=== PATIENT | male | born 1970 | race Caucasian/White ===

== ENCOUNTER → 2018-03-24 15:00 | Outpatient (CLI) | payer BC, SELFPAY ==
--- NOTE | 2018-03-24 15:04 | DI.RAD.S_ITS ---
PROCEDURE: XR KNEE RT 3V INDICATIONS: RIGHT KNEE PAIN TECHNIQUE: 3 views of the knee were acquired. COMPARISON: None. FINDINGS: Bones: No fractures or dislocations. No suspicious bony lesions. Minimal bone spurs over the posterior patella. Mild narrowing of the medial joint compartment. Soft tissues: Trace joint effusion. No suspicious soft tissue calcifications. IMPRESSION: 1. No acute bony abnormality. 2. 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 3. Trace joint effusion. Dictated by: Yonny Swain M.D. on 03/24/2018 at 15:37 Approved by: Yonny Swain M.D. on 03/24/2018 at 15:38
== END ==
PROVIDERS: PCP Family Medicine; Visit Provider Family Medicine
DX: M17.11 Unilateral primary osteoarthritis, right knee (principal); M25.561 Pain in right knee
CPT/HCPCS: 73562

== ENCOUNTER → 2019-07-19 10:28 | Outpatient (CLI) | payer BC, SELFPAY | PROVIDERS: PCP Family Medicine; Visit Provider Physician Assistant | DX: J02.9 Acute pharyngitis, unspecified (principal) | CPT/HCPCS: 87070 ==

== ENCOUNTER → 2019-07-19 10:38 | Outpatient (CLI) | payer BC, SELFPAY ==
--- NOTE | 2019-07-19 10:39 | DI.RAD.S_ITS ---
PROCEDURE: XR CHEST 2V INDICATIONS: cough, fever, R-sided wheeze - please R/O PNA TECHNIQUE: 2 views of the chest were acquired. COMPARISON: None. FINDINGS: Surgical changes and devices: None. Lungs and pleura: Lungs are clear. No pleural effusions or pneumothorax. Mediastinum: Mediastinal contours are normal. Heart size is normal. Bones and chest wall: No suspicious bony abnormalities. Soft tissues appear unremarkable. IMPRESSION: 1. No evidence of pneumonia. Dictated by: Raul Rivera M.D. on 07/19/2019 at 10:06 Approved by: Raul Rivera M.D. on 07/19/2019 at 10:08
== END ==
PROVIDERS: PCP Family Medicine; Visit Provider Physician Assistant
DX: R05 Cough (principal); R50.9 Fever, unspecified; R06.2 Wheezing; J02.9 Acute pharyngitis, unspecified
CPT/HCPCS: 71046; 87070

== ENCOUNTER 2019-10-24 17:30 | Emergency (ER) | payer BC, SELFPAY ==
[2019-10-24 17:35] VITALS: BP 164/105; PULSE 78; RESP 17; TEMP 36.9; O2SAT 99
--- NOTE | 2019-10-24 17:40 | DI.RAD.S_ITS ---
PROCEDURE: XR HIP W PEL IF DONE LT 2V INDICATIONS: fall TECHNIQUE: AP pelvis with lateral view(s) of the left hip(s). COMPARISON: None. FINDINGS: Bones: No fractures or dislocations. Pelvic ring appears intact. No suspicious bony lesions. Soft tissues: The visualized bowel gas pattern is normal. No suspicious soft tissue calcifications. IMPRESSION: Intact pelvis and left hip joint Dictated by: Carley Pineda M.D. on 10/24/2019 at 18:05 Approved by: Carley Pineda M.D. on 10/24/2019 at 18:07
--- NOTE | 2019-10-24 17:42 | DI.RAD.S_ITS ---
PROCEDURE: XR LUMBAR SPINE 2-3V INDICATIONS: fall TECHNIQUE: 2 views of the lumbar spine were acquired. COMPARISON: None. FINDINGS: Bones: 5 [id number] vertebrae are present. Mild levoconvex scoliotic curvature is noted. No vertebral body compression fractures. No suspicious bony lesions. Soft tissues: Overlying bowel gas pattern is normal. No suspicious soft tissue calcifications. IMPRESSION: No displaced fractures are seen on these plain films. If there is focal tenderness, or other clinical concern for a fracture not seen on these images in this patient with a given history of trauma, please consider a dedicated CT or a short-term followup plain film series (in 1-2 weeks) for further evaluation. Dictated by: Randy Orantes M.D. on 10/24/2019 at 17:23 Approved by: Randy Orantes M.D. on 10/24/2019 at 17:24
--- NOTE | 2019-10-24 17:50 | DI.RAD.S_ITS ---
PROCEDURE: XR FEMUR LT MIN 2V INDICATIONS: fall TECHNIQUE: 2 views of the femur were acquired. COMPARISON: [facility], CR, XR TIBIA FIBULA RT 2V, 10/24/2019, 18:00. [facility], CR, XR LUMBAR SPINE 2-3V, 10/24/2019, 17:56. [facility], CR, XR HIP W PEL IF DONE LT 2V, 10/24/2019, 17:44. FINDINGS: Bones: No fractures or dislocations. No suspicious bony lesions. Soft tissues: No suspicious soft tissue calcifications or masses. IMPRESSION: No definite, displaced fractures are seen by plain film. Dictated by: Randy Orantes M.D. on 10/24/2019 at 17:26 Approved by: Randy Orantes M.D. on 10/24/2019 at 17:27
--- NOTE | 2019-10-24 17:50 | DI.RAD.S_ITS ---
PROCEDURE: XR TIBIA FUBULA RT 2V INDICATIONS: fall TECHNIQUE: 2 views of the tibia and fibula were acquired. COMPARISON: [facility], CR, XR LUMBAR SPINE 2-3V, 10/24/2019, 17:56. [facility], CR, XR FEMUR LT MIN 2V, 10/24/2019, 17:51. [facility], CR, XR HIP W PEL IF DONE LT 2V, 10/24/2019, 17:44. FINDINGS: Bones: No fractures or dislocations. No suspicious bony lesions. Soft tissues: No suspicious soft tissue calcifications or masses. IMPRESSION: No acute bony injury is seen. Dictated by: Randy Orantes M.D. on 10/24/2019 at 17:27 Approved by: Randy Orantes M.D. on 10/24/2019 at 17:27
[2019-10-24] MEDS: MORPHINE 4 MG/ML INJ IV ×2 (17:51→19:40)
[2019-10-24 18:30] VITALS: BP 163/98
--- NOTE | 2019-10-24 18:55 | ED.LOWEXIN ---
HPI - Extremity Injury (Lower) <IVY Humphreys - Last Filed: 10/24/19 23:20> General Chief Complaint: Extremity Injury, Lower Stated Complaint: Back pain Time Seen by Provider: 10/24/19 17:56 Source: patient and EMS Mode of arrival: EMS Limitations: no limitations History of Present Illness HPI Narrative: This is a 49-year-old male, nonsmoker, who presents to ED with EMS with chief complain of severe low back pain radiating down to his buttock and inner groin region. Patient reports he was barbecuing outside and when he attempted to step over the puppy and landed his foot on a mat which is slipped away from his body and landed on his left low back/hip. He states his had two legs were splited into two opposite ways and he was unable to ambulate after the fall and waited for medics to arrive. Patient denies previous back injury or surgeries. Is not currently taking anticoagulant/antiplatelets. Patient denies incontinence for bladder or stool after the injury. Patient denies hitting his head when he had fell. Patient denies tingling, numbness, weakness to upper extremities or mid cervical tenderness. Patient reports slightly decreased sensation on his left lateral thigh. Received patient on a inflatable backboard from EMS. Related Data Home Medications Medication Instructions Recorded Confirmed metformin 500 mg tablet 500 mg PO DAILY 07/19/19 10/24/19 Previous Rx's Medication Instructions Recorded codeine 10 mg-guaifenesin 100 mg/5 10 ml PO .qhs PRN #120 ml 07/19/19 mL oral liquid cyclobenzaprine 10 mg PO TID PRN #14 tab 10/24/19 lidocaine 1 patch TOP DAILY #30 each 10/24/19 tramadol 50 mg PO TID-QID PRN #14 tab 10/24/19 Allergies Allergy/AdvReac Type Severity Reaction Status Date / Time Penicillins Allergy Unknown Verified 10/24/19 18:01 Review of Systems <IVY Humphreys - Last Filed: 10/24/19 23:20> Review of Systems Narrative: General: Denies fever, chills, fatigue, malaise, sweats. HEENT: Denies sinus pain, ear pain, sore throat, difficulty swallowing, dizziness. Respiratory: Denies dyspnea, cough, wheezing, hemoptysis, sputum. Cardiovascular: Denies chest pain, palpitations, orthopnea, edema. Gastrointestinal: Denies nausea, vomiting, abdominal pain, diarrhea, constipation, melena. : Denies dysuria, frequency, incontinence, hematuria, urinary retention. Musculoskeletal: See HPI Skin: Denies rash, skin lesions, or other. Neurologic: Denies weakness, headache, numbness, change in speech, confusion, seizures, incoordination. Psychiatric: No concerning psychosocial issues. 12-point review of systems is negative except for those stated above. Patient History <IVY Humphreys - Last Filed: 10/24/19 23:20> Social History Smoking Status: Never smoker Smoking Status: Never smoker alcohol intake frequency: a few times a week Substance Use Type: does not use Exam <IVY Humphreys - Last Filed: 10/24/19 23:20> Narrative Exam Narrative: General appearance: well developed, well nourished obese male in moderate distress from discomfort. Head: normocephalic, atraumatic, no scalp lesions, non-tender. ENT: Bilateral auditory canals and tympanic membranes clear. Hearing grossly intact. Nose without bleeding, purulent discharge, septal hematoma or deviation. Turbinate without erythema or swelling. Facial sinuses nontender to palpate. Mucous membrane moist, no mucosal lesion. Throat without erythema, tonsillar hypertrophy or exudate. Uvula in midline, airway patent. Neck/Thyroid: neck supple, full range of motion, no visible masses or meningeal signs. No JVD, non-tender without lymphadenopathy. Skin: no suspicious rashes, lesions over visible areas. Warm and dry and appropriate color for ethnicity. Heart: no clubbing, no cyanosis, no edema. S1 and S2 normal. RRR w/o murmurs, clicks, or bruits. Lungs: Breathing even and unlabored. No stridor. No accessory muscles used. Able to speak in full sentences. Chest: normal shape and expansion. Abdomen: non-obese, non-distended. Neurologic: alert and oriented. Cognitive exam, [employer] and PNS grossly intact on informal exam. Psych: good eye contact, normal affect. Initial Vital Signs Initial Vital Signs: Vital Signs Temperature 98.4 F 10/24/19 17:35 Pulse Rate 78 10/24/19 17:35 Respiratory Rate 17 10/24/19 17:35 Blood Pressure 164/105 H 10/24/19 17:35 Pulse Oximetry 99 10/24/19 17:35 Back/Spine/Pelvis Back: normal to inspection Thoracic/Lumbar Spine: thoracic and lumbar spine normal to inspection, No surgical scar(s) present, paraspinal tenderness (Radiating to left buttock and inner thigh), thoraco-lumbar ROM limited, thoraco-lumbar spasm (Right lower lumbar), No thoracic spinal tenderness, No lumbar spinal tenderness and straight leg raise positive (Left leg) Extrem Right lower extremity: full ROM, normal capillary refill, edema (Anterior mid leg), knee Details: normal to inspection; no tenderness and no swelling, lower leg (Anterior mid lower leg tender to palpate), ankle Details: normal to inspection; no tenderness and no swelling and foot Details: normal to inspection, toes with normal ROM, abrasion (anterior elizabeth), ecchymosis (Anterior chin), vascular exam Details: dorsalis pedis pulse present and motor-sensory exam Details: light-touch normal; no crepitus Left lower extremity: knee Details: normal to inspection; no tenderness, lower leg Details: normal to inspection; no tenderness, ankle Details: normal to inspection; no tenderness and no swelling and foot Details: normal capillary refill and normal to inspection; no tenderness <Antonio Murcia DO - Last Filed: 10/24/19 23:28> Initial Vital Signs Initial Vital Signs: Vital Signs Temperature 98.4 F 10/24/19 17:35 Pulse Rate 78 10/24/19 17:35 Respiratory Rate 17 10/24/19 17:35 Blood Pressure 164/105 H 10/24/19 17:35 Pulse Oximetry 99 10/24/19 17:35 Scores <IVY Humphreys - Last Filed: 10/24/19 23:20> GCS [place] coma scale eye opening: Spontaneous [place] coma scale verbal response: Orientated Yeni coma scale motor response: Obey commands Yeni coma scale total score: 15 Course <IVY Humphreys - Last Filed: 10/24/19 23:20> Orders Ordered: ED Orders 10/24/19 17:40 XR hip w pel if done LT 2V Stat 10/24/19 17:42 XR lumbar spine 2-3V Stat 10/24/19 17:50 XR femur LT min 2V Stat XR tibia fibula RT 2V Stat Discontinued Medications Acetaminophen (Tylenol) 975 mg PO NOW ONE Stop: 10/24/19 20:42 Last Admin: 10/24/19 20:50 Dose: 975 mg Documented by: CHARISMA Cyclobenzaprine HCl (Flexeril 10 Mg Prepack) 1 bottle MISC SEEINSTR ONE Stop: 10/24/19 20:42 Last Admin: 10/24/19 20:50 Dose: 1 bottle Documented by: CHARISMA Diazepam (Valium) 5 mg IV NOW ONE Stop: 10/24/19 18:54 Last Admin: 10/24/19 19:41 Dose: 5 mg Documented by: MICHAEL Ibuprofen (Advil) 400 mg PO NOW ONE Stop: 10/24/19 20:42 Last Admin: 10/24/19 20:50 Dose: 400 mg Documented by: CHARISMA Lidocaine (Lidoderm) 1 each TOP NOW ONE Stop: 10/24/19 20:42 Morphine Sulfate (Morphine) 4 mg IV NOW ONE Stop: 10/24/19 17:43 Last Admin: 10/24/19 17:51 Dose: 4 mg Documented by: LATRICIA Morphine Sulfate (Morphine) 4 mg IV NOW ONE Stop: 10/24/19 18:54 Last Admin: 10/24/19 19:40 Dose: 4 mg Documented by: MICHAEL Tramadol HCl (Ultram 50mg Prepack) 1 bottle MISC SEEINSTR ONE Stop: 10/24/19 20:42 Last Admin: 10/24/19 20:50 Dose: 1 bottle Documented by: CHARISMA Vital Signs Vital signs: Vital Signs - 8 hr 10/24/19 17:35 10/24/19 18:30 10/24/19 20:57 Temperature 98.4 F Pulse Rate 78 80 Pulse Rate [Bilateral Dorsalis Pedis] Respiratory Rate 17 19 Blood Pressure 164/105 H Blood Pressure [Right Arm] 163/98 H 152/78 H Pulse Oximetry 99 99 10/24/19 20:58 Temperature Pulse Rate Pulse Rate [Bilateral Dorsalis Pedis] 80 Respiratory Rate Blood Pressure Blood Pressure [Right Arm] Pulse Oximetry <Antonio Murcia DO - Last Filed: 10/24/19 23:28> Orders Ordered: ED Orders 03/14/20 17:40 XR hip w pel if done LT 2V Stat 10/24/19 17:42 XR lumbar spine 2-3V Stat 10/24/19 17:50 XR femur LT min 2V Stat XR tibia fibula RT 2V Stat Discontinued Medications Acetaminophen (Tylenol) 975 mg PO NOW ONE Stop: 10/24/19 20:42 Last Admin: 10/24/19 20:50 Dose: 975 mg Documented by: CHARISMA Cyclobenzaprine HCl (Flexeril 10 Mg Prepack) 1 bottle MISC SEEINSTR ONE Stop: 10/24/19 20:42 Last Admin: 10/24/19 20:50 Dose: 1 bottle Documented by: CHARISMA Diazepam (Valium) 5 mg IV NOW ONE Stop: 10/24/19 18:54 Last Admin: 10/24/19 19:41 Dose: 5 mg Documented by: MICHAEL Ibuprofen (Advil) 400 mg PO NOW ONE Stop: 10/24/19 20:42 Last Admin: 10/24/19 20:50 Dose: 400 mg Documented by: CHARISMA Lidocaine (Lidoderm) 1 each TOP NOW ONE Stop: 10/24/19 20:42 Morphine Sulfate (Morphine) 4 mg IV NOW ONE Stop: 10/24/19 17:43 Last Admin: 10/24/19 17:51 Dose: 4 mg Documented by: LATRICIA Morphine Sulfate (Morphine) 4 mg IV NOW ONE Stop: 10/24/19 18:54 Last Admin: 10/24/19 19:40 Dose: 4 mg Documented by: MICHAEL Tramadol HCl (Ultram 50mg Prepack) 1 bottle MISC SEEINSTR ONE Stop: 10/24/19 20:42 Last Admin: 10/24/19 20:50 Dose: 1 bottle Documented by: CHARISMA Vital Signs Vital signs: Vital Signs - 8 hr 10/24/19 17:35 10/24/19 18:30 10/24/19 20:57 Temperature 98.4 F Pulse Rate 78 80 Pulse Rate [Bilateral Dorsalis Pedis] Respiratory Rate 17 19 Blood Pressure 164/105 H Blood Pressure [Right Arm] 163/98 H 152/78 H Pulse Oximetry 99 99 10/24/19 20:58 Temperature Pulse Rate Pulse Rate [Bilateral Dorsalis Pedis] 80 Respiratory Rate Blood Pressure Blood Pressure [Right Arm] Pulse Oximetry MDM - Extremity Injury (Lower) <IVY Humphreys - Last Filed: 10/24/19 23:20> Differential Diagnosis Differential diagnosis: Likely other (Low back pain and spasm, sciatica, fractured spine) Medical Records Attestation: I reviewed the patient's medical records. Imaging Data XR-Hip LT: Radiologist's Impression: [address] [address] XRay Report Signed Patient: Dontrell Saldana GMR#: [id number] : 1970Acct:[id number] Age/Sex: 49 / MDate of Service: 10/24/19 Loc: ED Accession Number: [id number] Procedure: XR hip w pel if done LT 2V Ordering Provider: Lee Ellison MD PROCEDURE: XR HIP W PEL IF DONE LT 2V INDICATIONS: fall TECHNIQUE: AP pelvis with lateral view(s) of the left hip(s). COMPARISON: None. FINDINGS: Bones: No fractures or dislocations. Pelvic ring appears intact. No suspicious bony lesions. Soft tissues: The visualized bowel gas pattern is normal. No suspicious soft tissue calcifications. IMPRESSION: Intact pelvis and left hip joint Dictated by: Carley Pineda M.D. on 10/24/2019 at 18:05 Approved by: Carley Pineda M.D. on 10/24/2019 at 18:07 XR Lumbar: Radiologist's Impression: [address] [address] XRay Report Signed Patient: Dontrell Saldana GMR#: [id number] : 1970Acct:[id number] Age/Sex: 49 / MDate of Service: 10/24/19 Loc: ED Accession Number: [id number] Procedure: XR lumbar spine 2-3V Ordering Provider: Lee Ellison MD PROCEDURE: XR LUMBAR SPINE 2-3V INDICATIONS: fall TECHNIQUE: 2 views of the lumbar spine were acquired. COMPARISON: None. FINDINGS: Bones: 5 [id number] vertebrae are present. Mild levoconvex scoliotic curvature is noted. No vertebral body compression fractures. No suspicious bony lesions. Soft tissues: Overlying bowel gas pattern is normal. No suspicious soft tissue calcifications. IMPRESSION: No displaced fractures are seen on these plain films. If there is focal tenderness, or other clinical concern for a fracture not seen on these images in this patient with a given history of trauma, please consider a dedicated CT or a short-term followup plain film series (in 1-2 weeks) for further evaluation. Dictated by: Randy Orantes M.D. on 10/24/2019 at 17:23 Approved by: Randy Orantes M.D. on 10/24/2019 at 17:24 XR-Femur LT: Radiologist's Impression: [address] [address] XRay Report Signed Patient: Dontrell Saldana GMR#: [id number] : 1970Acct:[id number] Age/Sex: 49 / MDate of Service: 10/24/19 Loc: ED Accession Number: [id number] Procedure: XR femur LT min 2V Ordering Provider: Lee Ellison MD PROCEDURE: XR FEMUR LT MIN 2V INDICATIONS: fall TECHNIQUE: 2 views of the femur were acquired. COMPARISON: [facility], CR, XR TIBIA FIBULA RT 2V, 10/24/2019, 18:00. [facility], CR, XR LUMBAR SPINE 2-3V, 10/24/2019, 17:56. [facility], CR, XR HIP W PEL IF DONE LT 2V, 10/24/2019, 17:44. FINDINGS: Bones: No fractures or dislocations. No suspicious bony lesions. Soft tissues: No suspicious soft tissue calcifications or masses. IMPRESSION: No definite, displaced fractures are seen by plain film. Dictated by: Randy Orantes M.D. on 10/24/2019 at 17:26 Approved by: Randy Orantes M.D. on 10/24/2019 at 17:27 XR-Tib/Fib RT: Radiologist's Impression: [address] [address] XRay Report Signed Patient: Dontrell Saldana GMR#: [id number] : 1970Acct:[id number] Age/Sex: 49 / MDate of Service: 10/24/19 Loc: ED Accession Number: [id number] Procedure: XR tibia fibula RT 2V Ordering Provider: Lee Ellison MD PROCEDURE: XR TIBIA FUBULA RT 2V INDICATIONS: fall TECHNIQUE: 2 views of the tibia and fibula were acquired. COMPARISON: [facility], CR, XR LUMBAR SPINE 2-3V, 10/24/2019, 17:56. [facility], CR, XR FEMUR LT MIN 2V, 10/24/2019, 17:51. [facility], CR, XR HIP W PEL IF DONE LT 2V, 10/24/2019, 17:44. FINDINGS: Bones: No fractures or dislocations. No suspicious bony lesions. Soft tissues: No suspicious soft tissue calcifications or masses. IMPRESSION: No acute bony injury is seen. Dictated by: Randy Orantes M.D. on 10/24/2019 at 17:27 Approved by: Randy Orantes M.D. on 10/24/2019 at 17:27 MDM Narrative Medical decision making narrative: This is a 49-year-old male who presents to ED with low back pain and spasm which radiates to left groin and right lower leg with abrasion after he landed on left back and hip from falling when a mat slipped after he stepped over a puppy. When he was falling his legs did a split like a scissor. He was not able to bear weight or walk after the fall and had to be moved by EMS on a inflatable board to ED. During initial assessment, patient reports mildly decreased sensation in left lateral thigh. Patient was able to move bilateral toes, intact dorsal extension and plantar flexion, able flex and extend the bilateral knees. Patient had increasing spasming discomfort movement of left lower extremity. There was no saddle anesthesia or head incontinence episode. X-ray tests on left hip and femur, right tib/fib and lumbar did not appreciate acute fractures or dislocations. Patient received fentanyl prior arriving to ED by medics, patient received morphine upon arrival before x-ray test. Due to patient's increasing pain and spasming when backboard was removed and again during exam, patient received additional dose of morphine and Valium and felt improved on his discomfort. Patient was able to ambulate with a walker to the bathroom and back to bed in stable gait. Patient was medicated with Tylenol and Motrin with lidocaine patch before leaving ED and discharged to home with pre packs of tramadol and Flexeril. It is likely patient had strained lumbar and groin muscle. Patient discharged to home with additional dose of lidocaine patch, tramadol and Flexeril and advised to use Tylenol and Motrin as first-line treatment. Narcotic and muscle relaxant medication precautions were discussed with patient and return precautions were discussed. Patient advised to follow-up with his PCP and further imaging tests will warrant if pain persists and possible a referral to physical therapist/orthopedics and verbalized understanding and in agreement the treatment plan. Discharge Plan Departure Patient Disposition: Home Clinical Impression: Spasm of muscle of lower back Left lumbar pain Qualifiers: Chronicity: acute Sciatica presence: with sciatica Sciatica laterality: sciatica of left side Qualified Code(s): M54.42 - Lumbago with sciatica, left side Fall as cause of accidental injury at home as place of occurrence Qualifiers: Encounter type: initial encounter Qualified Code(s): W19.XXXA - Unspecified fall, initial encounter Abrasion of anterior lower leg Qualifiers: Encounter type: initial encounter Laterality: right Qualified Code(s): S80.811A - Abrasion, right lower leg, initial encounter Discharge Date/Time: 10/24/19 21:07 Instructions: DI for Low Back Pain, DI for Abrasion, DI for Back Spasm Activity Restrictions/Additional Instructions: You have been diagnosed with [low back pain radiating to left buttock and groin after slipped and fall. X-ray tests on hip, lumbar spine, left femur, right lower leg were all negative for fracture or dislocation. You were medicated with narcotic pain medication and Valium while in ED. you are able to take steps with a walker.]. What to do: *Take your medications as directed. Please take precautions since cyclobenzaprine and tramadol both can cause drowsiness. Please do not drive, drink alcohol or operate heavy equipments. Narcotic medication can cause constipation so please take precautions. You can take Tylenol 650-1000 mg up to 4 times a day as needed for pain. Ibuprofen 400-600 mg up to 3 times a day with food for pain. If pain persists after this medication then you can take tramadol. Take cyclobenzaprine for muscle relaxant. Lidocaine patch on low back for pain. This stays on 12 hours and off for 12 hours. *Follow up with your primary care provider in 2-3 days, call for an appointment. Let them know you were seen in the ED and that we asked you to be seen in follow up. If pain persists you may need further imaging tests. *Return to ED if you have any new, worsening, or concerning symptoms, such as [chest pain, breathing difficulty, unable to tolerate fluids, weakness/tingling/numbness to lower extremities, numbness to her groin, incontinence or any acute concerns]. Prescriptions: New cyclobenzaprine 10 mg tablet 10 mg PO TID PRN (Reason: muscle spasm) Qty: 14 RF: 0 tramadol 50 mg tablet 50 mg PO TID-QID PRN (Reason: pain) Qty: 14 RF: 0 lidocaine 5 % adhesive patch,medicated 1 patch TOP DAILY Qty: 30 RF: 0 No Action metformin 500 mg tablet 500 mg PO DAILY RF: 0 codeine-guaifenesin 10-100 mg/5 mL liquid 10 ml PO .qhs PRN (Reason: cough) Qty: 120 RF: 0 Referrals: Antonio Lynn MD [Primary Care Provider] - <Antonio Murcia DO - Last Filed: 10/24/19 23:28> Sign Out Provider Sign Out Attestation: Dr Murcia Co-Sign Statement: I was available for consultation during this patient's emergency department visit. This chart is signed by myself for administrative purposes only. I did not have direct contact with this patient during this visit. They were seen independently by the APC.
[2019-10-24] MEDS: diazePAM 10 MG/2 ML SYRINGE 5 MG IV (19:41)
[2019-10-24] MEDS: TRAMADOL 50 MG PREPACK 1 BOTTLE MISC (20:50)
[2019-10-24] MEDS: IBUPROFEN 400 MG TABLET PO (20:50)
[2019-10-24] MEDS: CYCLOBENZAPRINE 10 MG PREPACK 1 BOTTLE MISC (20:50)
[2019-10-24] MEDS: ACETAMINOPHEN 325 MG TABLET 975 MG PO (20:50)
[2019-10-24 20:57] VITALS: BP 152/78; PULSE 80; RESP 19; O2SAT 99
[2019-10-24 20:58] VITALS: PULSE 80
== END 2019-10-24 21:07 | disposition home or self-care (01) ==
PROVIDERS: Emergency Provider Nurse Practitioner Family; PCP Family Medicine
DX: S33.5XXA Sprain of ligaments of lumbar spine, initial encounter (principal); M54.42 Lumbago with sciatica, left side; S80.811A Abrasion, right lower leg, initial encounter; W19.XXXA Unspecified fall, initial encounter
CPT/HCPCS: 72100; 73502; 73552; 73590; 96374; 96375; 96376; 99284; J2270; J3360

== ENCOUNTER → 2020-09-09 10:20 | Outpatient (CLI) | payer BC, SELFPAY ==
--- NOTE | 2020-09-09 | DI.RAD.S_ITS ---
PROCEDURE: XR FOOT LT MIN 3V INDICATIONS: Pain in left foot TECHNIQUE: 3 views of the foot were acquired. COMPARISON: [facility], , FOOT 3V LEFT, 01/09/2015, 7:20. FINDINGS: Bones: No fractures or dislocations. No suspicious bony lesions. Soft tissues: No tibiotalar joint effusion. Achilles tendon appears normal. Soft tissue swelling in the lateral aspect of the left foot. IMPRESSION: No fractures. Soft tissue swelling in the lateral aspect of the left foot. If clinical symptoms persist or clinical suspicion for pathology is high, a repeat examination in 7-10 days, or advanced imaging such as CT or MRI is suggested for further evaluation. Dictated by: Manny Welch M.D. on 09/09/2020 at 13:24 Approved by: Manny Welch M.D. on 09/09/2020 at 13:30
== END ==
PROVIDERS: PCP Nurse Practitioner Family; Referring Provider Nurse Practitioner Family; Visit Provider Nurse Practitioner Family
DX: M79.672 Pain in left foot (principal); M79.89 Other specified soft tissue disorders
CPT/HCPCS: 73630

== ENCOUNTER → 2020-09-23 07:53 | Outpatient (CLI) | payer BC, SELFPAY ==
--- NOTE | 2020-09-23 | DI.MRI.S_ITS ---
PROCEDURE: MRFOOT LT WO CON INDICATIONS: Disorder of ligament, left foot TECHNIQUE: Noncontrast sagittal T1 spin echo and T2 fast spin echo with fat saturation, long-axis T1 spin echo and T2 fast spin echo with fat saturation, short-axis T1 spin echo and T2 fast spin echo with fat saturation through the forefoot. COMPARISON: [facility], CR, XR FOOT LT MIN 3V, 09/09/2020, 10:51. FINDINGS: Image quality: Excellent. Bones and joints: There is no acute left foot fracture or dislocation. 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 1st interphalangeal joint osteoarthritic changes also seen. Marrow edema is also noted involving posterior medial portion of inferior talus adjacent to posterior subtalar joint and measures up to 9 mm in size concerning for bony contusion in this area. No discrete fracture line is seen. Osteoarthritic changes also seen in subtalar joint and tibiotalar joint. Ankle mortise is congruent. Soft tissues: The visualized plantar foot muscles demonstrate normal signal and bulk. Visualized flexor and extensor tendons appear intact, without tenosynovitis. The distal insertions of the peroneus brevis and longus tendons appear intact. The principal Lisfranc ligament appears intact. No soft tissue ganglion cysts or bursal fluid collections. Sagittal images demonstrate no evidence for gross plantar plate tear. Plantar aponeurosis is intact. There is mildly thickened distal Achilles tendon with intrasubstance T2 hyperintense signal suggestive of low-grade distal talus tendinosis/partial-thickness tear. IMPRESSION: 1. No acute left foot fracture or dislocation. 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 Osteoarthritic changes also noted in tibiotalar joint and subtalar joint with suggestion of contusion versus small osteochondral lesion involving posterior medial portion of inferior talus adjacent to posterior subtalar joint. No osteochondral lesion of talar dome. 2. Suggestion of mild tendinosis and low-grade intrasubstance partial-thickness tear involving distal Achilles tendon near its insertion on posterior calcaneus. Rest of the visualized tendons and ligaments are grossly intact. 3. Plantar fascia is intact. No gross muscle signal abnormality. Dictated by: Milan Guerrero M.D. on 09/23/2020 at 9:16 Approved by: Milan Guerrero M.D. on 09/23/2020 at 9:25
== END ==
PROVIDERS: PCP Nurse Practitioner Family; Referring Provider Nurse Practitioner Family; Visit Provider Nurse Practitioner Family
DX: M24.275 Disorder of ligament, left foot (principal)
CPT/HCPCS: 73718

== ENCOUNTER → 2020-10-11 14:38 | Outpatient (CLI) | payer BC, SELFPAY ==
--- NOTE | 2020-10-11 14:43 | DI.RAD.S_ITS ---
PROCEDURE: XR CHEST 2V INDICATIONS: COUGH TECHNIQUE: 2 views of the chest were acquired. COMPARISON: [facility], CR, XR CHEST 2V, 07/19/2019, 10:37. FINDINGS: Surgical changes and devices: None. Lungs and pleura: Lungs are clear. No pleural effusions or pneumothorax. Mediastinum: Mediastinal contours are normal. Heart size is normal. Bones and chest wall: Chronic appearing left rib fractures. IMPRESSION: No acute disease. Dictated by: Franky Campoverde M.D. on 10/11/2020 at 15:05 Approved by: Franky Campoverde M.D. on 10/11/2020 at 15:06
== END ==
PROVIDERS: PCP Nurse Practitioner Family; Referring Provider Nurse Practitioner Family; Visit Provider Nurse Practitioner Family
DX: R05 Cough (principal); S22.42XA Multiple fractures of ribs, left side, initial encounter for closed fracture
CPT/HCPCS: 71046

== ENCOUNTER → 2020-10-19 15:32 | Outpatient (CLI) | payer BC, SELFPAY ==
[2020-10-19] MEDS: COVID-19 VACC, Ad26(JANSSEN)/PF 0.5 ML IM (15:40)
== END ==
PROVIDERS: PCP Nurse Practitioner Family; Visit Provider Internal Medicine
DX: Z23 Encounter for immunization (principal)
CPT/HCPCS: 0031A; 91303

== ENCOUNTER → 2020-11-24 08:51 | Outpatient (CLI) | payer BC, SELFPAY ==
[2020-11-24 09:43] LABS: COVID19 -Nasal RAPID Negative (Negative)
== END ==
PROVIDERS: PCP Nurse Practitioner Family; Referring Provider Internal Medicine; Visit Provider Internal Medicine
DX: Z20.822 Contact with and (suspected) exposure to COVID-19 (principal)
CPT/HCPCS: 87635; C9803

== ENCOUNTER → 2020-11-25 06:39 | Outpatient (CLI) | payer BC, SELFPAY ==
--- NOTE | 2020-11-30 09:54 | PM.PFT.1 ---
Pulmonary Function Test Referral & Results Date Patient Seen: 11/25/20 Requesting provider: Kristi Fitzpatrick Results: The spirometry demonstrates an FVC of 4.15 L which is 82% of predicted. The FEV1 was measured at 3.12 L which is 79% of predicted. The FEV1/FVC ratio was 75 which is 96% of predicted. Following the administration of bronchodilator there was a 24% improvement in FEF 25-75%. Lung volumes show an SVC of 4.25 L which is 86% of predicted. The diffusing capacity was measured at 38.54 which is 119% of predicted. The maximum voluntary ventilation was normal Interpretation: This study demonstrates mild obstructive lung disease based on reduction FEV1 although FEV1/FVC ratio is preserved. There is evidence of some improvement in small airway flow based on improvement in FEV1 as above. Shape a flow volume loop however does not really support any notable obstructive lung disease. Clinical correlation suggested. There may also be a slight reduction in lung volumes suggesting minimal restrictive lung disease although probably does not explain reduction FEV1 above
== END ==
PROVIDERS: PCP Nurse Practitioner Family; Referring Provider Nurse Practitioner Family; Visit Provider Nurse Practitioner Family
DX: R06.02 Shortness of breath (principal); J98.8 Other specified respiratory disorders; Z87.891 Personal history of nicotine dependence
CPT/HCPCS: 94060; 94726; 94729

== ENCOUNTER → 2020-12-28 08:59 | Outpatient (CLI) | payer BC, SELFPAY ==
[2020-12-28 11:26] LABS: COVID19 -Nasal RAPID Negative (Negative)
== END ==
PROVIDERS: PCP Nurse Practitioner Family; Visit Provider Physician Assistant
DX: Z01.812 Encounter for preprocedural laboratory examination (principal); Z20.822 Contact with and (suspected) exposure to COVID-19
CPT/HCPCS: 87635

== ENCOUNTER → 2020-12-30 13:22 | Outpatient (CLI) | payer BC, SELFPAY ==
--- NOTE | 2020-12-30 | DI.NM.S_ITS ---
PROCEDURE: NM EXERCISE TREADMILL NON NUC COMPARISON: None. INDICATIONS: Shortness of breath FINDINGS: The patient exercised for 6 minutes and 48 seconds, reaching 7.0 METs, ELDER +32%. 101% of maximum predicted heart rate achieved. Appropriate BP response to exercise. No ischemic ST changes and no angina during the study. IMPRESSION: Low risk, normal treadmill ECG only stress test. Moderately reduced exercise tolerance (ELDER +32%). No angina during the study. Dictated by: Julia Moran MD on 12/30/2020 at 16:32 Approved by: Julia Moran MD on 12/30/2020 at 16:34
--- NOTE | 2020-12-30 | DI.ECHO.S_ITS ---
[place] [facility]---------+ [facility] +---------+ : : [address] : : : : [id number] : : : : Phone: [phone]---------+ Echocardiogram Report + + :Name: MAGUI QUINTERO Study Date: 12/30/2020 Height: 70 in : :[facility] ReadingLocation: Weight: 312 lb : : Gender: Male BSA: 2.5 m2 : :: 1970 Age: 50 yrs BP: 156/98 mmHg: :Reason For Study: SOB : :Ordering Physician: JOSÉ MIGUEL, : :DARRON Performed By: Tonny William : :Referring: DARRON AVLDEZ : + + Interpretation Summary The left ventricle is normal in size and wall thickness. Left ventricular systolic function is low normal. Left ventricular ejection fraction is estimated to be 50%. There are no focal wall motion abnormalities. Diastolic parameters suggest a relaxation abnormality of the left ventricle, consistent with probable normal filling pressures. The right ventricle is normal in size and function. Pulmonary artery pressures cannot be estimated because of the lack of a measurable TR jet velocity but the IVC suggests a CVP of around 3 mmHg. Both atria are normal in size. There is no significant valvular heart disease. The aortic root is normal size. Procedure: A two-dimensional transthoracic echocardiogram with color flow and Doppler was performed. The study quality was technically difficult. There is no prior echocardiogram noted for this patient. A contrast injection of Definity was performed to improve assessment of LV function. The patient was in sinus rhythm with heart rates between 85-93 bpm during the exam. Left Ventricle: The left ventricle is normal in size and wall thickness. The left ventricle is not well visualized. Left ventricular systolic function is low normal. Left ventricular ejection fraction is estimated to be 50%. There are no focal wall motion abnormalities. Diastolic parameters suggest a relaxation abnormality of the left ventricle, consistent with probable normal filling pressures. Right Ventricle: The right ventricle is normal in size and function. Atria: Both atria are normal in size. There is no Doppler evidence for an interatrial shunt. Mitral Valve: The mitral valve is normal in structure and function. There is no mitral regurgitation noted. Aortic Valve: The aortic valve is trileaflet. The aortic valve opens well. No aortic regurgitation is present. Tricuspid Valve: The tricuspid valve is normal in structure and function. No tricuspid regurgitation. Pulmonary artery pressures cannot be estimated because of the lack of a measurable TR jet velocity but the IVC suggests a CVP of around 3 mmHg. Pulmonic Valve: The pulmonic valve is not well seen, but is grossly normal. There is no pulmonic valvular regurgitation. There is no significant valvular heart disease. Great Vessels: The aortic root is normal size. The dimensions of the ascending aorta are normal. The IVC is of normal diameter and collapses greater than 50% with a sniff. This suggests a low right atrial pressure of 3 mm Hg. Pericardium/ Pleura There is no pericardial effusion. There is no pleural effusion. MMode/2D Measurements & Calculations LVIDd: 5.7 cm LVOT diam: 2.4 cm LVIDs: 4.2 cm Ao root diam: 3.0 cm FS: 26.8 % asc Aorta Diam: 2.7 cm IVSd: 1.0 cm LVPWd: 0.88 cm LV sebastian. diameter/BSA (cm/m^2): 2.3 LV sys. diameter/BSA (cm/m^2): 1.7 LA A2 area: 16.6 cm2 RA long axis: 4.2 cm LA A4 area: 19.7 cm2 RA area: 11.7 cm2 LA length (vol): 5.5 cm RA vol: 27.5 ml LA vol: 50.3 ml RA : 10.9 ml/m2 LA vol index: 19.9 ml/m2 TAPSE: 2.8 cm Doppler Measurements & Calculations Ao V2 max: 120.9 cm/sec LVOT Max Gianluca: 72.6 cm/sec Ao V2 mean: 88.7 cm/sec LV V1 max P.1 mmHg Ao max P.9 mmHg LV V1 VTI: 15.8 cm Ao mean P.4 mmHg ILYA(I,D): 3.1 cm2 Ao V2 VTI: 22.4 cm ILYA(V,D): 2.6 cm2 sev ratio: 0.70 ILYA indexed to BSA (cm^2/m^2): 1.2 MV E max gianluca: 81.9 cm/sec PA pr(Accel): 41.3 mmHg MV A max gianluca: 98.2 cm/sec MV E/A: 0.83 Med Peak E' Gianluca: 7.6 cm/sec E/E' med: 10.8 Lat Peak E' Gianluca: 11.1 cm/sec E/E' lat: 7.4 E/e' average: 9.1 MV dec time: 0.15 sec SV(LVOT): 69.0 ml Reading Physician:05:23 PM
--- NOTE | 2020-12-30 15:15 | PM.TREADMILL ---
Cardiac Stress Test Report Referral & Results Date Patient Seen: 12/30/20 Time Patient Seen: 15:15 Requesting provider: Kristi Fitzpatrick Indication: Dyspnea Rest ECG: Sinus rhythm with t wave inversion in inferior leads Procedure Note: Standard Christopher protocol, 6:48 mins; 7.7 METS Reduced exercise capacity, ELDER +32% Normal hemodynamic response to exercise; hypertensive at baseline No chest pain or anginal symptoms Less than [address] depression in V5-V6 at peak exercise No ectopy Moderate dyspnea at peak exercise Impression: Normal exercise stress test Please note: Actual ECG tracings can be found in the PACS system.
== END ==
PROVIDERS: PCP Nurse Practitioner Family; Referring Provider Nurse Practitioner Family; Visit Provider Nurse Practitioner Family
DX: R06.02 Shortness of breath (principal); R06.00 Dyspnea, unspecified
CPT/HCPCS: 93017; C8929; Q9957

== ENCOUNTER → 2022-01-24 07:32 | Outpatient (CLI) | payer BC, SELFPAY ==
--- NOTE | 2022-01-24 | DI.ECHO.S_ITS ---
[place] +---------+ Hospital +---------+ : : [address] : [address] : : : : [id number] : : : : Phone: [phone]---------+ Echocardiogram Report + + :Name: MAGUI QUINTERO Study Date: 01/24/2022 Height: 70 in : :[facility] ReadingLocation: Weight: 298 lb : : Gender: Male BSA: 2.5 m2 : :: 1970 Age: 51 yrs BP: 140/86 mmHg: :Reason For Study: Hypertension : :Ordering Physician: MIGUEL, : :CORNELL Biggs Performed By: Rimma Mata : :Referring: CORNELL RIVERA : + + Interpretation Summary The left ventricle is normal in size and wall thickness. The ejection fraction is estimated to be 45-50%. There is mild global hypokinesis of the left ventricle. No significant change from the previous study. The right ventricle is normal in size and function. No significant valvular pathology seen. Procedure: A two-dimensional transthoracic echocardiogram with color flow and Doppler was performed. The study quality was technically difficult. A contrast injection of Definity was performed to improve assessment of LV function. Comparison is made with the echocardiogram of 12/30/2020. The patient was in sinus rhythm with heart rates between 75-88 bpm during the exam. Left Ventricle: The left ventricle is normal in size and wall thickness. There is no thrombus. The ejection fraction is estimated to be 45-50%. There is mild global hypokinesis of the left ventricle. Diastolic parameters suggest a relaxation abnormality of the left ventricle, consistent with probable normal filling pressures. Right Ventricle: The right ventricle is normal in size and function. Atria: The left atrial size is normal. Both atria have remained unchanged in size since the prior echo exam. Right atrial size is normal. There is no Doppler evidence for an interatrial shunt. Mitral Valve: The mitral valve is normal in structure and function. There is no mitral regurgitation noted. Aortic Valve: The aortic valve opens well. The aortic valve is grossly normal. There is no aortic valve stenosis. No aortic regurgitation is present. Tricuspid Valve: The tricuspid valve is not well visualized, but is grossly normal. There is trace tricuspid regurgitation. Pulmonic Valve: The pulmonic valve is not well seen, but is grossly normal. There is no pulmonic valvular regurgitation. Great Vessels: The aortic root is normal size. The dimensions of the ascending aorta are normal. The inferior vena cava was not visualized. Pericardium/ Pleura There is no pericardial effusion. There is no pleural effusion. MMode/2D Measurements & Calculations LVIDd: 5.5 cm LVOT diam: 2.2 cm LVIDs: 4.0 cm Ao root diam: 3.4 cm FS: 27.4 % asc Aorta Diam: 2.6 cm IVSd: 0.87 cm LVPWd: 0.99 cm LV sebastian. diameter/BSA (cm/m^2): 2.2 LV sys. diameter/BSA (cm/m^2): 1.6 LA A2 area: 18.7 cm2 RA long axis: 4.2 cm LA A4 area: 14.7 cm2 RA area: 12.1 cm2 LA length (vol): 4.8 cm RA vol: 29.6 ml LA vol: 48.1 ml RA : 12.0 ml/m2 LA vol index: 19.5 ml/m2 RVD1 (basal): 2.8 cm RVD2 (mid): 2.9 cm TAPSE: 2.1 cm Doppler Measurements & Calculations Ao V2 max: 121.3 cm/sec LVOT Max Gianluca: 72.1 cm/sec Ao V2 mean: 91.7 cm/sec LV V1 max P.1 mmHg Ao max P.9 mmHg LV V1 VTI: 16.4 cm Ao mean P.7 mmHg ILYA(I,D): 2.6 cm2 Ao V2 VTI: 25.1 cm ILYA(V,D): 2.3 cm2 sev ratio: 0.65 ILYA indexed to BSA (cm^2/m^2): 1.0 MV E max gianluca: 55.8 cm/sec PA V2 max: 120.6 cm/sec MV A max gianluca: 56.5 cm/sec PA V2 mean: 89.7 cm/sec MV E/A: 0.99 PA mean P.5 mmHg Med Peak E' Gianluca: 7.5 cm/sec PA pr(Accel): 25.9 mmHg E/E' med: 7.4 Lat Peak E' Gianluca: 8.4 cm/sec E/E' lat: 6.6 E/e' average: 7.0 MV dec time: 0.13 sec SV(LVOT): 64.5 ml Reading Physician:05:36 PM
== END ==
PROVIDERS: PCP Family Medicine; Referring Provider Family Medicine; Visit Provider Family Medicine
DX: I10 Essential (primary) hypertension (principal)
CPT/HCPCS: 93306; Q9957

== ENCOUNTER 2022-12-04 19:35 | Emergency (ER) | payer BC, SELFPAY ==
[2022-12-04 20:24] VITALS: BP 141/79; PULSE 104; RESP 20; TEMP 37.1; O2SAT 95; BMI 43.0
[2022-12-04] MEDS: FLUORESCEIN 1 MG STRIP EYE-RIGHT (22:55)
[2022-12-04] MEDS: PROPARACAINE 0.5% OPHTH SOL 1 DROPS EYE-RIGHT (22:55)
--- NOTE | 2022-12-04 23:04 | ED.GENADULT ---
HPI - General Adult General Chief complaint: Eye Problems Stated complaint: something in rt eye Time Seen by Provider: 12/04/22 22:55 Source: patient Mode of arrival: Ambulatory History of Present Illness HPI narrative: Patient is here for evaluation of discomfort in potential foreign body in his right eye. He states he does not know specifically anything that could be in his eye although he has been doing some landscaping. He was not doing landscaping the time with the symptoms started he was sitting at home where he would a sudden onset of feel like there is something in his eye. It has been continuous since then. He does wear corrective lenses but has never had eye surgeries. Does not wear contacts. Related Data Home Medications Medication Instructions Recorded Confirmed metformin 500 mg tablet 500 mg PO DAILY 07/19/19 11/26/22 Previous Rx's Medication Instructions Recorded codeine 10 mg-guaifenesin 100 mg/5 10 ml PO .qhs PRN cough #120 mL 07/19/19 mL oral liquid cyclobenzaprine 10 mg tablet 10 mg PO TID PRN muscle spasm #14 10/24/19 tabs lidocaine 5 % topical patch 1 patch topical DAILY #30 ea 10/24/19 tramadol 50 mg tablet 50 mg PO TID-QID PRN pain #14 tabs 10/24/19 fluticasone propionate 50 1 spray intranasal Q12H #16 grams 11/26/22 mcg/actuation nasal spray,suspension (Flonase Allergy Relief) erythromycin 5 mg/gram (0.5 %) eye 0.5 inch EYE-RIGHT TID #3.5 grams 12/04/22 ointment Allergies Allergy/AdvReac Type Severity Reaction Status Date / Time Penicillins Allergy Unknown Verified 11/26/22 09:43 Review of Systems Eyes Eyes: Reports system reviewed and no additional complaints, except as documented Patient History Social History Smoking Status: Never smoker Smoking Status: Never smoker alcohol intake frequency: a few times a week Substance Use Type: does not use Exam Initial Vital Signs Initial Vital Signs: Vital Signs Temperature 98.8 F 12/04/22 20:24 Pulse Rate 104 H 12/04/22 20:24 Respiratory Rate 20 12/04/22 20:24 Blood Pressure 141/79 H 12/04/22 20:24 Pulse Oximetry 95 12/04/22 20:24 Oxygen Delivery Method Room Air 12/04/22 20:24 Eyes Other: Left eyes unremarkable. Periorbital findings of the right eye unremarkable. No foreign bodies noted with eversion/inversion of the upper and lower eyelid. He does have a corneal abrasion located between the 11 and 1 o'clock position in the superior aspect of the visual axis. No signs of ulceration. No signs of open globe. Skin General: no rashes or lesions noted Course Orders Ordered: Discontinued Medications Erythromycin (Erythromycin Ophth 1 Gm Oint) 1 applic EYE-RIGHT NOW ONE Stop: 12/04/22 23:05 Last Admin: 12/04/22 23:12 Dose: 1 applic Documented By: SPF Fluorescein Sodium (Fluorescein 1 Mg Strip) 1 mg EYE-RIGHT NOW ONE Stop: 12/04/22 19:42 Last Admin: 12/04/22 22:55 Dose: 1 mg Documented By: BS Proparacaine HCl (Proparacaine 0.5% Ophth Klaudia) 1 drops EYE-RIGHT NOW ONE Stop: 12/04/22 19:41 Last Admin: 12/04/22 22:55 Dose: 1 drops Documented By: BS Vital Signs Vital signs: Vital Signs - 8 hr 12/04/22 23:18 Pulse Rate 89 Respiratory Rate 16 Medical Decision Making MDM Narrative Medical decision making narrative: However no foreign bodies noted in the eye but he does have a corneal abrasion. Low suspicion for cellulitis/glaucoma. Will place on antibiotic ointment. He was given care instructions and return precautions. He expressed understanding and agreement. Discharge Plan Departure Patient Disposition: Home Clinical Impression: Corneal abrasion Instructions: DI for Corneal Abrasion Activity Restrictions/Additional Instructions: I do recommend that you use the antibiotic ointment as directed. You can take Tylenol or ibuprofen for discomfort. Return to the emergency department for new or worsening symptoms. Prescriptions: New erythromycin 5 mg/gram (0.5 %) ointment 0.5 inch EYE-RIGHT TID Qty: 3.5 3RF No Action metformin 500 mg tablet 500 mg PO DAILY codeine-guaifenesin 10-100 mg/5 mL liquid 10 ml PO .qhs PRN (Reason: cough) Qty: 120 0RF fluticasone propionate [Flonase Allergy Relief] 50 mcg/actuation spray,suspension 1 spray intranasal Q12H Qty: 16 0RF Rx Instructions: administer into each nostril cyclobenzaprine 10 mg tablet 10 mg PO TID PRN (Reason: muscle spasm) Qty: 14 0RF tramadol 50 mg tablet 50 mg PO TID-QID PRN (Reason: pain) Qty: 14 0RF Rx Instructions: Can cause drowsiness so please take precautions. Do not drive, drink alcohol, operate heavy equipments. Can cause constipation. lidocaine 5 % adhesive patch,medicated 1 patch TOP DAILY Qty: 30 0RF Rx Instructions: leave on most painful area for up to 12 hrs Referrals: Anibal Robles MD [Primary Care Provider] - Stand Alone Forms: Patient Portal/API
[2022-12-04] MEDS: ERYTHROMYCIN OPHTH 1 GM OINT 1 APPLIC EYE-RIGHT (23:12)
[2022-12-04 23:18] VITALS: PULSE 89; RESP 16
== END 2022-12-04 23:18 | disposition home or self-care (01) ==
PROVIDERS: Emergency Provider Emergency Medicine; PCP Family Medicine
DX: S05.01XA Injury of conjunctiva and corneal abrasion without foreign body, right eye, initial encounter (principal)
CPT/HCPCS: 99282

== ENCOUNTER → 2023-08-03 15:48 | Outpatient (CLI) | payer BC, SELFPAY | PROVIDERS: PCP Family Medicine; Visit Provider Nurse Practitioner Family | DX: J02.9 Acute pharyngitis, unspecified (principal) | CPT/HCPCS: 87070 ==

== ENCOUNTER → 2025-05-06 07:54 | Outpatient (CLI) | payer BC, SELFPAY | PROVIDERS: Family Provider Family Medicine; PCP Family Medicine; Visit Provider Nurse Practitioner Family | DX: J02.9 Acute pharyngitis, unspecified (principal) | CPT/HCPCS: 87070 ==